=== PATIENT | male | born 1995 | race Caucasian/White ===

== ENCOUNTER 2018-11-21 14:50 | Emergency (ER) | payer SELFPAY ==
[~2018-11-21] VITALS: Ht 177.8 cm; Wt 72.6 kg
[2018-11-21 14:58] VITALS: Ht 177.8 cm; Wt 72.6 kg
[2018-11-21 16:39] VITALS: BP 120/64
== END 2018-11-21 16:39 | disposition home or self-care (01) ==
LOC: ED 14:50
DX: M25.461 Effusion, right knee (principal)

== ENCOUNTER 2019-03-05 12:16 | Emergency (ER) | payer MEDICAID ==
[~2019-03-05] VITALS: Ht 175.3 cm; Wt 75.7 kg
[2019-03-05 12:34] VITALS: Ht 175.3 cm; Wt 75.7 kg
[2019-03-05 14:49] VITALS: BP 119/77
== END 2019-03-05 14:49 | disposition home or self-care (01) ==
LOC: ED 12:16
DX: S16.1XXA Strain of muscle, fascia and tendon at neck level, initial encounter (principal); X58.XXXA Exposure to other specified factors, initial encounter; Y93.89 Activity, other specified; Y92.89 Other specified places as the place of occurrence of the external cause; Y99.8 Other external cause status

== ENCOUNTER 2019-12-23 22:37 | Emergency (ER) | payer MEDICAID ==
[~2019-12-23] VITALS: Ht 177.8 cm; Wt 72.6 kg
[2019-12-23 22:53] VITALS: Ht 177.8 cm; Wt 72.6 kg
[2019-12-23 23:40] VITALS: BP 122/68
== END 2019-12-23 23:40 | disposition home or self-care (01) ==
LOC: ED 22:37
DX: S93.402A Sprain of unspecified ligament of left ankle, initial encounter (principal); W01.198A Fall on same level from slipping, tripping and stumbling with subsequent striking against other object, initial encounter; Y93.66 Activity, soccer; Y92.89 Other specified places as the place of occurrence of the external cause; Y99.8 Other external cause status